=== PATIENT | female | born 1970 | race Asian ===

== ENCOUNTER → 2016-08-25 | Outpatient (CLI) | payer BC ==
[~2016-08-25] MED LIST: AHCC; CHOL100010 PO; GADAVIST IV PRN; LEUP1INJ15; LEVO1TAB33 PO; Quercetin; TAMO20TA47 PO; [UNRECOGNIZED DRUG - OTHER]; astragalus; selenium; zometa IV
--- NOTE | 2016-08-25 16:11 | DIAGNOSTIC IMAGING REPORT ---
MRI OF THE BRAIN WITHOUT AND WITH IV CONTRAST CLINICAL HISTORY: Breast cancer. New onset smell changes. COMPARISON STUDY: MRI of the brain January 31, 2011. TECHNIQUE: Utilizing a 1.5 Anna Marie magnet and dedicated coil, multiplanar, multiecho imaging of the brain was performed pre and postcontrast administration. IV administration of 5 mL of Gadavist contrast was uneventful. FINDINGS: There are no areas of restricted diffusion. No acute intracranial hemorrhage, midline shift or mass effect is present. Brain volume is normal. Ventricular system is normal. The basilar cisterns are patent. There are no extra-axial collections. Flow-voids for the major intracranial vessels are present. There are no intracranial masses or pathologic enhancement. A few small white matter T2 hyperintense foci are unchanged since MRI of January 31, 2011. No new areas of signal abnormality are present. Calvarial signal is maintained. Orbits are on remarkable. There is a small mucous retention cyst within the right maxillary sinus. IMPRESSION: 1. No acute intracranial findings. 2. No evidence of metastatic disease. 3. No change since MRI of January 31, 2011. Electronically signed by: Yon Dodge M.D. 08/25/2016 4:10 PM Dictated Date/Time: 08/25/2016 4:04 PM
== END | disposition home or self-care (01) ==
LOC: C.MRI 15:11
PROVIDERS: ATTEND Nurse Practitioner
DX: C50.911 Malignant neoplasm of unspecified site of right female breast (principal)

== ENCOUNTER → 2016-09-01 | Outpatient (CLI) | payer BC ==
[~2016-09-01] MED LIST changes: -GADAVIST IV PRN
== END | disposition home or self-care (01) ==
LOC: C.MAMM 14:08
PROVIDERS: ATTEND Nurse Practitioner
DX: C50.911 Malignant neoplasm of unspecified site of right female breast (principal)